=== PATIENT | male | born 1940 | race Caucasian/White ===

== ENCOUNTER 2017-06-30 10:19 | Emergency (ER) | payer MEDICARE ==
[2017-06-30 10:32] VITALS: BMI 21.5
--- NOTE | 2017-06-30 10:47 | ED PDOC ---
Arrival/HPI - General Chief Complaint: Lower Extremity Problem/Injury Time Seen by Provider: 06/30/17 10:36 Historian: Patient - History of Present Illness Narrative History of Present Illness (Text): 06/30/17 10:43 A 77 year old male presents to the emergency department complaining of bilateral lower extremity swelling for the past few days. Patient notes chronic shortness of breath, which is no different from his usual symptoms. Patient denies trauma, injury, fever, chills, nausea, vomiting, abdominal pain, chest pain or any other complaints. Patient reports he quit smoking 10 years ago. PMD: Dr. Alamo Time/Duration: Other (few days) Symptom Course: Unchanged Quality: Other Context: Home Associated Symptoms (Text): 06/30/17 12:00 Patient reports his PMD was unavailable today and he has had some mild bilateral lower extremity edema for the last few days. Chronic shortness of breath no different from usual. No chest pain. No fever or chills. No cough. Past Medical History - Provider Review Nursing Documentation Reviewed: Yes - Cardiac Hx Cardiac Disorders: Yes Hx Hypertension: Yes - Pulmonary Hx Respiratory Disorders: Yes Hx Chronic Obstructive Pulmonary Disease (COPD): Yes Hx Emphysema: Yes - Genitourinary/Gynecological Hx Prostate Cancer: Yes Other/Comment: ureter CA - Psychiatric Hx Substance Use: No - Surgical History Other/Comment: prostate and ureter Family/Social History - Physician Review Nursing Documentation Reviewed: Yes Family/Social History: No Known Family HX Smoking Status: Former Smoker (Quit 10 years ago) Hx Alcohol Use: Yes Frequency of alcohol use: Socially Hx Substance Use: No Allergies/Home Meds Allergies/Adverse Reactions: Allergies peanut Allergy (Verified 06/30/17 10:54) ANAPHYLAXIS Home Medications: Home Meds Medication Instructions Recorded Confirmed Albuterol Sulfate [Proair Hfa] 2 puff IH PRN PRN 06/30/17 06/30/17 Atorvastatin [Lipitor] 40 mg PO DAILY 06/30/17 06/30/17 Budesonide/Formoterol Fumarate 2 puff IH DAILY 06/30/17 06/30/17 [Symbicort] Tamsulosin [Flomax] 0.4 mg PO DAILY 06/30/17 06/30/17 amLODIPine [Norvasc] 10 mg PO DAILY 06/30/17 06/30/17 Review of Systems - Physician Review All systems were reviewed & negative as marked: Yes - Review of Systems Constitutional: Fatigue. absent: Fevers, Night Sweats Respiratory: SOB, Wheezing. absent: Cough Cardiovascular: absent: Chest Pain, Palpitations, Syncope Gastrointestinal: absent: Abdominal Pain, Nausea, Vomiting Musculoskeletal: Other (Bilateral lower extremity swelling) Neurological: absent: Headache, Dizziness Physical Exam Vital Signs Reviewed: Yes Vital Signs Temp Pulse Resp BP Pulse Ox 06/30/17 10:19 98.5 F 105 H 18 135/78 98 Temperature: Afebrile Blood Pressure: Normal Pulse: Tachycardic Respiratory Rate: Normal Appearance: Positive for: Well-Appearing, Non-Toxic, Comfortable Pain Distress: None Mental Status: Positive for: Alert and Oriented X 3 - Systems Exam Head: Present: Atraumatic, Normocephalic Pupils: Present: PERRL Extroacular Muscles: Present: EOMI Conjunctiva: Present: Normal Mouth: Present: Moist Mucous Membranes Pharnyx: No: ERYTHEMA, EXUDATE, TONSILS ENLARGED Neck: Present: Normal Range of Motion Respiratory/Chest: Present: Good Air Exchange, Wheezes (mild wheezing), Decreased Breath Sounds. No: Respiratory Distress, Accessory Muscle Use, Tender to Palpation Cardiovascular: Present: Regular Rate and Rhythm, Normal S1, S2. No: Murmurs Abdomen: Present: Normal Bowel Sounds. No: Tenderness, Distention, Peritoneal Signs, Rebound, Guarding Back: Present: Normal Inspection Upper Extremity: Present: Normal Inspection. No: Cyanosis, Edema Lower Extremity: Present: Edema (+1 bilateral lower extremity edema), NORMAL PULSES. No: CALF TENDERNESS Neurological: Present: GCS=15, CN II-XII Intact, Speech Normal, Motor Func Grossly Intact Skin: Present: Warm, Dry, Normal Color. No: Rashes Psychiatric: Present: Alert, Oriented x 3, Normal Insight, Normal Concentration Medical Decision Making ED Course and Treatment: 06/30/17 10:43 Impression: A 77 year old male with bilateral lower extremity swelling. Patient notes chronic shortness of breath. Plan: -- Duplex lower extremity ultrasound -- Chest xray -- EKG -- Labs -- Duoneb -- Reassess and disposition Progress Notes: 06/30/17 12:02 EKG shows sinus tachycardia rate approximately 105 with Q waves inferiorly and nonspecific ST and T-wave changes with no acute changes 06/30/17 12:55 Chest 1 view shows no infiltrate effusion or cardiomegaly - Lab Interpretations Lab Results: 06/30/17 11:00 06/30/17 11:00 Lab Results 06/30/17 11:00: Sodium 143, Potassium 3.8, Chloride 102, Carbon Dioxide 32, Anion Gap 13, BUN 20, Creatinine 1.1, Est GFR ( Amer) > 60, Est GFR (Non- Af Amer) > 60, Random Glucose 95, Calcium 9.3, Total Bilirubin 0.5, AST 30, ALT 36, Alkaline Phosphatase 113, Lactate Dehydrogenase 400, Total Creatine Kinase 110, Troponin I < 0.01, NT-Pro-B Natriuret Pep 39.0, Total Protein 8.1, Albumin 4.1, Globulin 4.0, Albumin/Globulin Ratio 1.0 L 06/30/17 11:00: WBC 7.0, RBC 4.45, Hgb 13.7 L, Hct 41.5 L, MCV 93.3, MCH 30.8, MCHC 33.0, RDW 14.5, Plt Count 181, MPV 11.3 H, Gran % 69.1 H, Lymph % (Auto) 19.2 L, [place] % (Auto) 8.2 H, Eos % (Auto) 2.9, Baso % (Auto) 0.6, Gran # 4.83, Lymph # 1.3, [place] # 0.6, Eos # 0.2, Baso # 0.04 I have reviewed the lab results: Yes - RAD Interpretation Radiology Orders: 06/30/17 11:16 DUPLEX LOWER EXTRM VEIN BILAT [US] Stat 06/30/17 11:17 CHEST ONE VIEW [RAD] Stat Bilateral lower extremity venous Doppler as read by the radiologist is negative for DVT Pulmonary Nurse Practitioner: Radiologist - Medication Orders Current Medication Orders: Discontinued Medications Albuterol/Ipratropium (Duoneb 3 Mg/0.5 Mg (3 Ml) Ud) 3 ml IH ONCE STA Stop: 06/30/17 11:19 - Scribe Statement The provider has reviewed the documentation as recorded by the Scribe Nan e[employer] Provider Scribe Attestation: All medical record entries made by the Scribe were at my direction and personally dictated by me. I have reviewed the chart and agree that the record accurately reflects my personal performance of the history, physical exam, medical decision making, and the department course for this patient. I have also personally directed, reviewed, and agree with the discharge instructions and disposition. Disposition/Present on Arrival - Present on Arrival Any Indicators Present on Arrival: No History of DVT/PE: No History of Uncontrolled Diabetes: No Urinary Catheter: No History of Decub. Ulcer: No History Surgical Site Infection Following: None - Disposition Have Diagnosis and Disposition been Completed?: Yes Diagnosis: Pedal edema, Chronic obstructive pulmonary disease (COPD) Disposition: HOME/ ROUTINE Disposition Time: 12:56 Patient Plan: Discharge Patient Problems: Current Active Problems Problem Status Onset Chronic obstructive pulmonary disease (COPD) Acute Pedal edema Acute Condition: GOOD Discharge Instructions (ExitCare): COPD (Chronic Obstructive Pulmonary Disease ) (ED), Edema (ED) Additional Instructions: Keep legs elevated. Follow-up with PMD. Follow up in ER as needed. Referrals: Beronica Alamo DO [Primary Care Provider] - Follow up with primary Forms: [facility] [facility] (Albanian)
[2017-06-30 11:02] VITALS: RESP 18; TEMP 98.5
[2017-06-30] MEDS ORDERED: Albuterol-Ipratrop 3 mg / 0.5 (3 ml) UD IH STA (11:18)
[2017-06-30 11:42] LABS: ALBUMIN 4.1 g/dL (3.0-4.8); ALT/SGPT 36 U/L (7-56); AST/SGOT 30 U/L (15-59); BLOOD UREA NITROGEN 20 mg/dL (7-21); CALCIUM 9.3 mg/dL (8.4-10.5); GFR AFRICAN-AMERICAN > 60; GFR NON-AFRICAN AMERICAN > 60
[2017-06-30 11:44] LABS: BASO # 0.04 K/mm3 (0.0-2.0); BASO % 0.6 % (0.0-3.0); EOS # 0.2 (0.0-0.7); EOS % 2.9 % (1.5-5.0); GRAN # 4.83 (1.4-6.5); GRAN % 69.1 % (50.0-68.0); HEMOGLOBIN 13.7 gm/dL (14.0-18.0); LYMPH # 1.3 (1.2-3.4); LYMPH % 19.2 % (22.0-35.0); MEAN CELL VOLUME 93.3 fL (80.0-105.0); MEAN CORPUSCULAR HEMOGLOBIN 30.8 pg (25.0-35.0); MEAN PLATELET VOLUME 11.3 fl (7.0-11.0); MONO # 0.6 (0.1-0.6); MONO % 8.2 % (1.0-6.0); PLATELET COUNT 181 10^3/uL (120.0-450.0); RBC 4.45 10^6/uL (3.5-6.1); RED CELL DISTRIBUTION WIDTH 14.5 % (11.5-14.5)
[2017-06-30 12:00] LABS: TROPONIN I < 0.01 ng/mL
--- NOTE | 2017-06-30 12:57 | RAD ---
PROCEDURE: CHEST RADIOGRAPH, 1 VIEW HISTORY: edema COMPARISON: None available. FINDINGS: LUNGS: Clear. PLEURA: No pneumothorax or pleural fluid seen. CARDIOVASCULAR: Normal. OSSEOUS STRUCTURES: No significant abnormalities. VISUALIZED UPPER ABDOMEN: Normal. OTHER FINDINGS: None. IMPRESSION: No active disease.
[2017-06-30 13:20] VITALS: BP 147/78; PULSE 98; O2SAT 97
--- NOTE | 2017-06-30 13:56 | US ---
HISTORY: Leg pain and swelling. Evaluate for DVT PHYSICIAN(S): Dmitry Cota MD. TECHNIQUE: Duplex sonography and color-flow Doppler with graded compression were used to evaluate the deep venous systems of both lower extremities. FINDINGS: The visualized deep venous systems of both lower extremities are sonographically normal and compressible. Normal wave forms and augmentation are seen. There is no sonographic evidence for deep venous thrombosis in the visualized segments of both lower extremities. IMPRESSION: No sonographic evidence for deep venous thrombosis in the visualized segments of both lower extremities.
--- NOTE | 2017-06-30 15:14 | CARD ---
APPROVED REPORT EKG Measurement Heart [id number] <Conclusion> Sinus tachycardia Possible Left atrial enlargement RVCD Left axis deviation Inferior infarct, age undetermined NSSTW changes
== END 2017-06-30 13:18 | disposition home or self-care (01) ==
LOC: MERGE 10:19 → ED 10:19
DX: J44.9 Chronic obstructive pulmonary disease, unspecified (principal); R60.0 Localized edema; I10 Essential (primary) hypertension